=== PATIENT | female | born 1940 ===

== ENCOUNTER → 2019-08-10 13:07 | Outpatient (CLI) | payer MEDICARE ==
[2019-08-10 13:35] LABS: CREATININE - SERUM 0.8 mg/dL (0.6-1.3); VANCOMYCIN - TROUGH 14.4 ug/mL (10.0-20.0)
[2019-08-10 13:54] LABS: BASOPHILS 0.3 % (0-2); EOSINOPHILS 3.8 % (0-7); HEMATOCRIT 32.8 % (36.0-48.0); HEMOGLOBIN 9.4 g/dL (12-16); LYMPHOCYTES 22.3 % (15-50); MCHC 28.7 g/dL (31.0-37.0); MCV 97.6 fL (80.0-100.0); MEAN PLATELET VOLUME 9.2 fL (7.4-10.4); MONOCYTES 9.5 % (2-11); NEUTROPHILS 63.1 % (40-80); PLATELET COUNT 291 10x3/uL (130-400); RBC 3.36 10x6/uL (4.00-5.40); RDW 18.3 % (11.5-14.5)
== END | disposition home or self-care (01) ==
LOC: D.LABREF 13:07
PROVIDERS: ATTEND Internal Medicine
DX: Z48.89 Encounter for other specified surgical aftercare (principal)

== ENCOUNTER → 2019-08-17 09:28 | Outpatient (CLI) | payer MEDICARE ==
[2019-08-17 10:00] LABS: HEMATOCRIT 45.6 % (36.0-48.0); HEMOGLOBIN 14.7 g/dL (12-16); LYMPHOCYTES 14.3 % (15-50); MCH 28.5 pg (26.0-34.0); MCHC 32.2 g/dL (31.0-37.0); MCV 88.5 fL (80.0-100.0); NEUTROPHILS 76.5 % (40-80); PLATELET COUNT 331 10x3/uL (130-400); RBC 5.15 10x6/uL (4.00-5.40); RDW 15.1 % (11.5-14.5)
[2019-08-17 12:30] LABS: CREATININE - SERUM 0.9 mg/dL (0.6-1.3); VANCOMYCIN - TROUGH 14.8 ug/mL (10.0-20.0)
== END | disposition home or self-care (01) ==
LOC: D.LABREF 09:28
PROVIDERS: ATTEND Internal Medicine
DX: Z48.89 Encounter for other specified surgical aftercare (principal)

== ENCOUNTER → 2019-08-26 10:21 | Outpatient (CLI) | payer MEDICARE ==
[2019-08-26 10:45] LABS: HEMATOCRIT 49.7 % (36.0-48.0); HEMOGLOBIN 14.8 g/dL (12-16); MCH 26.9 pg (26.0-34.0); MCHC 29.8 g/dL (31.0-37.0); MCV 90.4 fL (80.0-100.0); MEAN PLATELET VOLUME 9.1 fL (7.4-10.4); RDW 17.3 % (11.5-14.5); WBC 2.9 10x3/uL (4.8-10.8)
[2019-08-26 10:47] LABS: PLATELET COUNT 136 10x3/uL (130-400)
[2019-08-26 10:58] LABS: CREATININE - SERUM 0.7 mg/dL (0.6-1.3)
[2019-08-26 11:35] LABS: EOSINOPHILS 2 % (0-7); LYMPHOCYTES 28 % (15-50); MONOCYTES 11 % (2-11); NEUTROPHILS 59 % (40-80)
[2019-08-26 11:36] LABS: PLATELET ESTIMATE NORMAL
== END | disposition home or self-care (01) ==
LOC: D.LABREF 10:21
PROVIDERS: ATTEND Internal Medicine
DX: T81.41XA Infection following a procedure, superficial incisional surgical site, initial encounter (principal)

== ENCOUNTER → 2019-09-02 09:28 | Outpatient (CLI) | payer MEDICARE ==
[2019-09-02 09:59] LABS: BASOPHILS 0.2 % (0-2); EOSINOPHILS 3.4 % (0-7); HEMATOCRIT 32.6 % (36.0-48.0); HEMOGLOBIN 9.4 g/dL (12-16); IMMATURE GRANULOCYTES 0.3 % (0-5); LYMPHOCYTES 18.8 % (15-50); MCH 26.6 pg (26.0-34.0); MCHC 28.8 g/dL (31.0-37.0); MCV 92.1 fL (80.0-100.0); MEAN PLATELET VOLUME 9.7 fL (7.4-10.4); MONOCYTES 8.2 % (2-11); NEUTROPHILS 69.1 % (40-80); RBC 3.54 10x6/uL (4.00-5.40); RDW 17.2 % (11.5-14.5); WBC 6.6 10x3/uL (4.8-10.8)
[2019-09-02 10:04] LABS: PLATELET COUNT 317 10x3/uL (130-400)
[2019-09-02 10:19] LABS: CREATININE - SERUM 0.9 mg/dL (0.6-1.3); VANCOMYCIN - TROUGH 16.8 ug/mL (10.0-20.0)
== END | disposition home or self-care (01) ==
LOC: D.LABREF 09:28
PROVIDERS: ATTEND Internal Medicine
DX: T81.41XA Infection following a procedure, superficial incisional surgical site, initial encounter (principal)

== ENCOUNTER → 2019-09-09 09:33 | Outpatient (CLI) | payer MEDICARE ==
[2019-09-09 09:51] LABS: BASOPHILS 0.2 % (0-2); EOSINOPHILS 3.4 % (0-7); HEMATOCRIT 37.2 % (36.0-48.0); HEMOGLOBIN 10.7 g/dL (12-16); IMMATURE GRANULOCYTES 0.2 % (0-5); LYMPHOCYTES 28.8 % (15-50); MCHC 28.8 g/dL (31.0-37.0); MCV 90.5 fL (80.0-100.0); MEAN PLATELET VOLUME 9.5 fL (7.4-10.4); MONOCYTES 12.2 % (2-11); NEUTROPHILS 55.2 % (40-80); PLATELET COUNT 286 10x3/uL (130-400); RBC 4.11 10x6/uL (4.00-5.40); RDW 16.9 % (11.5-14.5); WBC 4.7 10x3/uL (4.8-10.8)
[2019-09-09 10:00] LABS: CREATININE - SERUM 0.8 mg/dL (0.6-1.3); VANCOMYCIN - TROUGH 16.1 ug/mL (10.0-20.0)
== END | disposition home or self-care (01) ==
LOC: D.LABREF 09:33
PROVIDERS: ATTEND Internal Medicine
DX: T81.41XA Infection following a procedure, superficial incisional surgical site, initial encounter (principal)

== ENCOUNTER → 2019-09-15 09:57 | Outpatient (CLI) | payer MEDICARE ==
[2019-09-15 10:52] LABS: BASOPHILS 0.2 % (0-2); EOSINOPHILS 2.5 % (0-7); HEMATOCRIT 33.2 % (36.0-48.0); HEMOGLOBIN 9.6 g/dL (12-16); IMMATURE GRANULOCYTES 0.2 % (0-5); LYMPHOCYTES 26.7 % (15-50); MCH 25.5 pg (26.0-34.0); MCHC 28.9 g/dL (31.0-37.0); MCV 88.3 fL (80.0-100.0); MEAN PLATELET VOLUME 9.8 fL (7.4-10.4); MONOCYTES 12.2 % (2-11); NEUTROPHILS 58.2 % (40-80); PLATELET COUNT 253 10x3/uL (130-400); RBC 3.76 10x6/uL (4.00-5.40); RDW 16.9 % (11.5-14.5); WBC 4.4 10x3/uL (4.8-10.8)
[2019-09-15 11:08] LABS: CREATININE - SERUM 0.7 mg/dL (0.6-1.3); VANCOMYCIN - TROUGH 17.7 ug/mL (10.0-20.0)
== END | disposition home or self-care (01) ==
LOC: D.LABREF 09:57
PROVIDERS: ATTEND Internal Medicine
DX: T81.41XA Infection following a procedure, superficial incisional surgical site, initial encounter (principal); L02.213 Cutaneous abscess of chest wall

== ENCOUNTER → 2019-09-28 08:30 | Outpatient (CLI) | payer MEDICARE ==
[2019-09-28 17:24] LABS: BASOPHILS 0 % (0-2); EOSINOPHILS 2.9 % (0-7); HEMATOCRIT 34.3 % (36.0-48.0); IMMATURE GRANULOCYTES 0.2 % (0-5); LYMPHOCYTES 18.8 % (15-50); MCH 25.8 pg (26.0-34.0); MCHC 29.2 g/dL (31.0-37.0); MCV 88.6 fL (80.0-100.0); MEAN PLATELET VOLUME 9.5 fL (7.4-10.4); MONOCYTES 12.7 % (2-11); NEUTROPHILS 65.4 % (40-80); PLATELET COUNT 277 10x3/uL (130-400); RBC 3.87 10x6/uL (4.00-5.40); RDW 16.8 % (11.5-14.5); WBC 4.9 10x3/uL (4.8-10.8)
[2019-09-28 17:40] LABS: CREATININE - SERUM 0.8 mg/dL (0.6-1.3); VANCOMYCIN - TROUGH 18.4 ug/mL (10.0-20.0)
== END | disposition home or self-care (01) ==
LOC: D.LABREF 08:30
PROVIDERS: ATTEND Internal Medicine Infectious Disease
DX: L02.213 Cutaneous abscess of chest wall (principal); T81.41XA Infection following a procedure, superficial incisional surgical site, initial encounter; T31.40 Burns involving 40-49% of body surface with 0% to 9% third degree burns